=== PATIENT | female | born 1955 | race Hispanic/Latino ===

== ENCOUNTER 2017-11-12 18:18 | Emergency (ER) | payer MEDICARE ==
[2017-11-12 18:25] VITALS: BP 123/75
[2017-11-12] MEDS ORDERED: TORADOL IM ONE (21:00)
[2017-11-12] MEDS ORDERED: DECADRON IV ONE (21:01)
--- NOTE | 2017-11-12 21:17 | Emergency Department Report ---
ED Back Pain/Injury HPI - General Chief Complaint: Back Pain/Injury Stated Complaint: BACK SPASMS Time Seen by Provider: 11/12/17 21:00 Source: patient Limitations: No Limitations - History of Present Illness Initial Comments: 62-year-old female comes in complaint of back spasms that started on Saturday after moving furniture. Patient states that the pain has increased with walking. Patient reports that she has had this before in the past and was placed on muscle relaxant. Patient reports that she took a muscle relaxant an hour prior to arrival. Patient does have a past medical history of diabetes severe migraines hypertension. She is followed by a primary care provider Dr. Ila Friedman. She reports that she takes her medications as prescribed. Patient denies any known known drug allergies. MD Complaint: back pain -: days(s) (4) Similar Symptoms Previously: Yes Place: home Radiation: none Severity scale (0 -10): 10 Quality: sharp Consistency: constant Improves With: movement Worsens With: movement Context: while lifting, turning/twisting, bending Associated Symptoms: denies: numbness, difficulty urinating, incontinence, fever /chills - Related Data Previous Rx's Medication Instructions Recorded Last Taken Type Naproxen [Naprosyn] 500 mg PO BID #20 tablet 11/12/17 Unknown Rx Allergies Allergy/AdvReac Type Severity Reaction Status Date / Time No Known Allergies Allergy Unverified 11/12/17 18:21 ED Review of Systems ROS: Stated complaint: BACK SPASMS Other details as noted in HPI Comment: All other systems reviewed and negative Musculoskeletal: back pain ED Past Medical Hx - Past Medical History Previous Medical History?: Yes Hx Hypertension: Yes Hx Diabetes: Yes Hx of Cancer: Yes Hx Headaches / Migraines: Yes - Surgical History Past Surgical History?: Yes Hx Open Heart Surgery: Yes (double bypass) Hx Cholecystectomy: Yes Additional Surgical History: x 2. right hand surgery for carpal tunnel - Social History Smoking Status: Never Smoker Substance Use Type: None - Medications Home Medications: Home Medications Medication Instructions Recorded Confirmed Last Taken Type Naproxen [Naprosyn] 500 mg PO BID #20 tablet 11/12/17 Unknown Rx ED Physical Exam - General Limitations: No Limitations General appearance: alert, in no apparent distress - Head Head exam: Present: atraumatic, normocephalic - Eye Eye exam: Present: EOMI - Respiratory Respiratory exam: Present: normal lung sounds bilaterally. Absent: respiratory distress - Cardiovascular Cardiovascular Exam: Present: regular rate, normal rhythm. Absent: systolic murmur, diastolic murmur, rubs, gallop - Extremities Exam Extremities exam: Present: full ROM - Back Exam Back exam: Present: tenderness (right mid to lower back), muscle spasm - Neurological Exam Neurological exam: Present: alert, oriented X3 - Psychiatric Psychiatric exam: Present: normal affect, normal mood ED Course Vital Signs 11/12/17 11/12/17 18:21 21:35 Temperature 98.6 F Pulse Rate 74 Respiratory 16 18 Rate Blood Pressure 123/75 O2 Sat by Pulse 97 Oximetry ED Medical Decision Making - Radiology Data Radiology results: report reviewed Lumbar sacral 2 view ordered impression shows degenerative disc disease at L2 through 3 and L3 through 4. Bowel right convex scoliosis. - Medical Decision Making She has been evaluated by this provider fast track. X-ray of lumbar sacral ordered Toradol 30 mg Decadron 5. Discharge patient on ibuprofen and baclofen and encouraged her to follow up with her primary care provider. Critical care attestation.: If time is entered above; I have spent that time in minutes in the direct care of this critically ill patient, excluding procedure time. ED Disposition Clinical Impression: Chronic back pain greater than 3 months duration Degenerative disc disease Qualifiers: Spinal region: lumbar Qualified Code(s): M51.36 - Other intervertebral disc degeneration, lumbar region Scoliosis Qualifiers: Scoliosis type: unspecified scoliosis Spinal region: lumbar Qualified Code(s): M41.9 - Scoliosis, unspecified Disposition: DC-01 TO HOME OR SELFCARE Is pt being admited?: No Does the pt Need Aspirin: No Condition: Stable Instructions: Degenerative Disc Disease (ED) Additional Instructions: Please take pain medication as prescribed. I recommend following up with her primary care provider as well as orthopedist. Prescriptions: Naproxen [Naprosyn] 500 mg PO BID #20 tablet Referrals: GEMMA SO MD [Primary Care Provider] - 3-5 Days
--- NOTE | 2017-11-12 23:25 | XRay Report ---
FINAL REPORT EXAM: XR SPINE LUMBOSACRAL 2-3V HISTORY: back pain TECHNIQUE: 3 views of the lumbar spine PRIORS: None. FINDINGS: The lumbar vertebral bodies are normal in height. There is mild right convex scoliosis centered at L3-4. Otherwise, vertebral alignment is normal. There is endplate osteophyte formation, endplate sclerosis and mild loss of disc height at L2-3. There is mild endplate osteophyte formation and endplate sclerosis at L3-4. Otherwise, the disc spaces appear well-preserved. The soft tissues are unremarkable. IMPRESSION: Degenerative disc disease at L2-3 and L3-4. Mild right convex scoliosis.
== END 2017-11-12 23:55 | disposition home or self-care (01) ==
LOC: ED 18:18
DX: M51.36 Other intervertebral disc degeneration, lumbar region (principal); M41.9 Scoliosis, unspecified; G89.29 Other chronic pain; M54.5 Low back pain; I10 Essential (primary) hypertension; E11.9 Type 2 diabetes mellitus without complications; G43.909 Migraine, unspecified, not intractable, without status migrainosus
CPT/HCPCS: 72100; 96372; 96374; 99283; J1100; J1885

== ENCOUNTER 2020-11-10 18:23 | Emergency (ER) | payer MEDICARE ==
[2020-11-10 19:12] VITALS: BP 124/86
--- NOTE | 2020-11-10 20:07 | XRay Report ---
Right hand 3 views INDICATION: Pain FINDINGS: Diffuse swelling throughout the index finger. MCP joint and IP joints appear intact. No dis placed fracture is seen. Signer Name: Dc Jones MD Signed: 11/10/2020 8:02 PM Workstation Name: [id number]
--- NOTE | 2020-11-10 20:33 | Emergency Department Report ---
ED Upper Extremity Inj HPI - General Chief Complaint: Extremity Injury, Upper Stated Complaint: FINGER INJURY Time Seen by Provider: 11/10/20 19:20 Source: patient Mode of arrival: Ambulatory Limitations: No Limitations - History of Present Illness Initial Comments: This is a 65-year-old female nontoxic, well nourished in appearance, no acute signs of distress presents to the ED with c/o of right index pain 1 day. Patient stated that she hit her finger against the door. Patient denies any other injuries or trauma. Patient denies any numbness, tingling, fever, chills, nausea, vomiting, chest pain, shortness of breath, headache, stiff neck. Pat ient denies any joint swelling or joint redness. Patient stated decreased range of motion. Patient denies any allergies or significant past medical history. MD Complaint: Injury to:: right, finger -: days(s) Other Extremity Injury: Fingers: Right Severity scale (0 -10): 8 Improves With: immobilization Worsens With: movement of extremity Associated Symptoms: denies other symptoms. denies: weakness, numbness, neck pain, suspects foreign body, nausea/vomiting, heard/felt popping sensat - Related Data Previous Rx's Medication Instructions Recorded Last Taken Type Naproxen [Naprosyn] 500 mg PO BID #20 tablet 11/12/17 Unknown Rx Naproxen 500 mg PO Q12H PRN #12 tablet 11/10/20 Unknown Rx Allergies Allergy/AdvReac Type Severity Reaction Status Date / Time No Known Allergies Allergy Unverified 11/12/17 18:21 ED Review of Systems ROS: Stated complaint: FINGER INJURY Other details as noted in HPI Comment: All other systems reviewed and negative Constitutional: denies: chills, fever Eyes: denies: eye pain, eye discharge, vision change ENT: denies: ear pain, throat pain Respiratory: denies: cough, shortness of breath, wheezing Cardiovascular: denies: chest pain, palpitations Endocrine: no symptoms reported Gastrointestinal: denies: abdominal pain, nausea, diarrhea Genitourinary: denies: urgency, dysuria, discharge Musculoskeletal: denies: back pain, joint swelling, arthralgia Skin: denies: rash, lesions Neurological: denies: headache, weakness, paresthesias Psychiatric: denies: anxiety, depression Hematological/Lymphatic: denies: easy bleeding, easy bruising ED Past Medical Hx - Past Medical History Previous Medical History?: Yes Hx Hypertension: Yes Hx Diabetes: Yes Hx Headaches / Migraines: Yes - Surgical History Past Surgical History?: Yes Hx Open Heart Surgery: Yes (double bypass) Hx Cholecystectomy: Yes Additional Surgical History: x 2. right hand surgery for carpal tunnel - Social History Smoking Status: Never Smoker Substance Use Type: None - Medications Home Medications: Home Medications Medication Instructions Recorded Confirmed Last Taken Type Naproxen [Naprosyn] 500 mg PO BID #20 tablet 11/12/17 Unknown Rx Naproxen 500 mg PO Q12H PRN #12 tablet 11/10/20 Unknown Rx ED Physical Exam - General Limitations: No Limitations General appearance: alert, in no apparent distress - Head Head exam: Present: atraumatic, normocephalic - Eye Eye exam: Present: normal appearance - Neck Neck exam: Present: normal inspection, full ROM. Absent: lymphadenopathy - Respiratory Respiratory exam: Absent: respiratory distress - Cardiovascular Cardiovascular Exam: Present: regular rate - Extremities Exam Extremities exam: Present: normal inspection, full ROM, tenderness, normal capillary refill. Absent: joint swelling - Expanded Upper Extremity Exam Right General: Present: normal inspection Shoulder Exam: Present: normal inspection, full ROM. Absent: tenderness, swelling Upper Arm exam: Present: normal inspection, full ROM. Absent: tenderness, swelling Elbow exam: Present: normal inspection, full ROM. Absent: tenderness, swelling Forearm Wrist exam: Present: normal inspection, full ROM. Absent: tenderness, swelling Hand Wrist exam: Present: normal inspection, full ROM, tenderness, swelling. Absent: abrasion, laceration, ecchymosis, deformity, crepidus, dislocation, erythema, amputation, nail avulsion, subungual hematoma Hand L/R Back: 1 - Pain and swelling here Vascular: Present: normal capillary refill. Absent: vascular compromise (Neurovascular within normal limits) - Back Exam Back exam: Present: normal inspection, full ROM - Neurological Exam Neurological exam: Present: alert, oriented X3, normal gait - Psychiatric Psychiatric exam: Present: normal affect, normal mood - Skin Skin exam: Present: warm, dry, intact, normal color. Absent: rash ED Course Vital Signs 11/10/20 19:06 Temperature 97.9 F Pulse Rate 86 Respiratory 16 Rate Blood Pressure 124/86 [Right] O2 Sat by Pulse 96 Oximetry - Reevaluation(s) Reevaluation #1: 11/10/20 20:37 Patient is speaking in full sentences with no signs of distress noted. ED Medical Decision Making - Radiology Data [facility] [address] [place] [address] XRay Report Signed Patient: VIANEY DEWITT MR#: [id number] 99 : 1955 Acct:[id number] Age/Sex: 65 / F ADM Date: 11/10/20 Loc: ED Attending Dr: Ordering Physician: VARUN MARTIN NP Date of Service: 11/10/20 Procedure(s): XR finger(s) 2+V RT Accession Number(s): [id number] cc: VARUN MARTIN NP Fluoro Time In Minutes: Right hand 3 views INDICATION: Pain FINDINGS: Diffuse swelling throughout the index finger. MCP joint and IP joints appear intact. No displaced fracture is seen. Signer Name: Dc Jones MD Signed: 11/10/2020 8:02 PM Workstation Name: [id number] Transcribed By: LIO Dictated By: NOLA JONES MD Electronically Authenticated By: NOLA JONES MD Signed Date/Time: 11/10/202001 DD/ 01 TD/TT: - Medical Decision Making This is a 65-year-old female that presents with right finger strain. Patient is stable and was examined by me. X-ray has been obtained and dictated by the radiologist. Patient is notified of the x-ray report with noted by the patient. Patient does have normal ROM with some tenderness and no joint swelling. No ecchymosis. no joint redness or swelling. Not warm to touch. No signs of cellulites present. Patient was instructed to RICE therapy. Patient is discharged with Naproxen. At time of discharge, the patient does not seem toxic or ill in appearance. No acute signs of distress noted. Patient agrees to discharge treatment plan of care. No further questions noted by the patient. Critical care attestation.: If time is entered above; I have spent that time in minutes in the direct care of this critically ill patient, excluding procedure time. ED Disposition Clinical Impression: Strain of right index finger Disposition: 01 HOME / SELF CARE / HOMELESS Is pt being admited?: No Does the pt Need Aspirin: No Condition: Stable Instructions: RICE Therapy for Routine Care of Injuries, [id number] Additional Instructions: Follow-up with a orthopedic doctor in 3-5 days or if symptoms worsen and continue return to emergency room as soon as possible. No physical activity that extremity until cleared by orthopedic doctor Prescriptions: Naproxen 500 mg PO Q12H PRN #12 tablet PRN Reason: Pain , Severe (7-10) Referrals: PRIMARY CARE, [Referring] - 3-5 Days BOYD GRAF MD [Staff Physician] - 3-5 Days Forms: Work/School Release Form(ED) Time of Disposition: 20:39
== END 2020-11-10 22:55 | disposition home or self-care (01) ==
LOC: ED 18:23
DX: S66.310A Strain of extensor muscle, fascia and tendon of right index finger at wrist and hand level, initial encounter (principal); I10 Essential (primary) hypertension; E11.8 Type 2 diabetes mellitus with unspecified complications; G43.909 Migraine, unspecified, not intractable, without status migrainosus; Z98.890 Other specified postprocedural states; W22.03XA Walked into furniture, initial encounter; Y93.89 Activity, other specified; Y92.89 Other specified places as the place of occurrence of the external cause; Y99.8 Other external cause status
CPT/HCPCS: 99283

== ENCOUNTER 2021-09-23 01:09 | Emergency (ER) | payer MEDICARE ==
[2021-09-23 01:14] VITALS: BP 146/87
== END 2021-09-26 09:57 | disposition left against medical advice (07) ==
LOC: ED 01:09
DX: M54.9 Dorsalgia, unspecified (principal); Z53.21 Procedure and treatment not carried out due to patient leaving prior to being seen by health care provider